=== PATIENT | female | born 1960 | race Two or more races ===

== ENCOUNTER 2023-02-16 07:17 | Outpatient (CLI) | payer OTHER | END 2023-02-16 07:19 | disposition home or self-care (01) | LOC: LAB 07:17 | PROVIDERS: ATTEND Surgery | DX: D64.9 Anemia, unspecified (principal); N39.0 Urinary tract infection, site not specified ==

== ENCOUNTER 2023-02-25 05:35 | Inpatient (IN) | payer OTHER ==
[~2023-02-25] VITALS: Ht 149.9 cm; Wt 53.5 kg
[~2023-02-25 05:35] MED LIST: ALDACTONE25 MG PO; ATIVAN PO; AVAPRO300 MG PO; CARVEDILOL25 M1 PO; CREST PO; NORVASC10 MG PO; ZOLOFT50 MG PO; [UNRECOGNIZED DRUG - OTHER] PO
== END 2023-02-26 22:08 | disposition home or self-care (01) | DRG 328 ==
LOC: CIR.AMB 05:35 → SURG 18:08
PROVIDERS: ADMIT Surgery; ATTEND Surgery
PROC: 8E0W0CZ Robotic Assisted Procedure of Trunk Region, Open Approach (ICD-10-PCS; 2023-02-25)
PROC: 0D840ZZ Division of Esophagogastric Junction, Open Approach (ICD-10-PCS; principal; 2023-02-25 09:30)
DX: K22.0 Achalasia of cardia (principal); Z20.822 Contact with and (suspected) exposure to COVID-19
CPT/HCPCS: 43330; S2900

== ENCOUNTER 2024-03-23 09:57 | Emergency (ER) | payer OTHER ==
[~2024-03-23] VITALS: Ht 149.9 cm; Wt 55.8 kg
[2024-03-23] MEDS ORDERED: FAMOTIDINE/PF 20 MG in 0.9 % SODIUM CHLORIDE 8 ML IV PUSH STA (10:47)
[2024-03-23] MEDS ORDERED: 0.9 % SODIUM CHLORIDE 1,000 ML IV SCH (11:00)
[2024-03-23] MEDS ORDERED: ONDANSETRON HCL 2 MG/ML VIAL IV ONE (11:00)
[2024-03-23 11:23] LABS: HEMATOCRIT 40.3 % (36.0-45.00); HEMOGLOBIN 13.8 g/dL (12.0-15.00); MEAN CELL VOLUME 85.8 fL (80.00-100.00); MEAN CORPUSCULAR HEMOGLOBIN 29.3 pg (27.00-32.0); MEAN CORPUSCULAR HGB CONC 34.2 g/dl (32.0-36.0); PLATELET COUNT 223 K/uL (150-450); RED CELL DISTRIBUTION WIDTH 14.8 % (11.5-14.5)
[2024-03-23 12:00] LABS: ALBUMIN 3.7 gm/dL (3.4-5.0); BILIRUBIN TOTAL 1.97 mg/dL (0.3-1.2); CALCIUM 9.2 mg/dL (8.5-10.1); CREATININE SERUM 0.7 mg/dL (0.55-1.02); GFR 84.79; GLOBULINA 4.3 G/DL (2.4-3.5); POTASSIUM 3.84 mEq/L (3.5-5.1)
[2024-03-23] MEDS ORDERED: ONDANSETRON ODT8 MG PO (16:20)
== END 2024-03-23 16:37 | disposition home or self-care (01) ==
LOC: ER 09:58
PROVIDERS: General Practice
DX: K22.2 Esophageal obstruction (principal); N83.9 Noninflammatory disorder of ovary, fallopian tube and broad ligament, unspecified; Q78.6 Multiple congenital exostoses; I10 Essential (primary) hypertension; Z88.6 Allergy status to analgesic agent; Z88.8 Allergy status to other drugs, medicaments and biological substances

== ENCOUNTER 2024-04-11 14:06 | Emergency (ER) | payer OTHER ==
[~2024-04-11] VITALS: Ht 149.9 cm; Wt 53.1 kg
[~2024-04-11 14:06] MED LIST changes: +ONDANSETRON ODT8 MG PO
[2024-04-11 15:40] LABS: HEMATOCRIT 41.6 % (36.0-45.00); HEMOGLOBIN 13.8 g/dL (12.0-15.00); MEAN CELL VOLUME 85.7 fL (80.00-100.00); MEAN CORPUSCULAR HEMOGLOBIN 28.4 pg (27.00-32.0); MEAN CORPUSCULAR HGB CONC 33.2 g/dl (32.0-36.0); PLATELET COUNT 261 K/uL (150-450); RED BLOOD COUNT 4.85 M/uL (4.00-6.00); RED CELL DISTRIBUTION WIDTH 14.6 % (11.5-14.5)
[2024-04-11 16:11] LABS: INR 0.97; PARTIAL THROMBOPLASTIN TIME 29.1 SECONDS (22.0-34.0); PROTHROMBIN TIME 10.2 SECONDS (9.0-11.5)
[2024-04-11 16:15] LABS: PH,URINE 5.5 (5.0-8.0); URINE APPEARANCE Clear; URINE BILIRRUBIN Negative (NEGATIVE); URINE BLOOD Negative; URINE COLOR Yellow; URINE GLUCOSE Negative (NEGATIVE); URINE LEUKOCYTE Negative; URINE NITRATE Negative; URINE PROTEIN Negative (NEGATIVE)
[2024-04-11 16:15] LABS: ALBUMIN 3.8 gm/dL (3.4-5.0); BILIRUBIN TOTAL 1.74 mg/dL (0.3-1.2); CALCIUM 9.3 mg/dL (8.5-10.1); CREATININE SERUM 0.76 mg/dL (0.55-1.02); GFR 77.11; POTASSIUM 3.78 mEq/L (3.5-5.1); TOTAL PROTEIN 7.8 gm/dL (6.4-8.2)
[2024-04-11 16:16] LABS: URINE BACTERIA 186.4 uL (0.0-1933); URINE EPITHELIAL CELLS 85.4 uL (0.0-38.8); URINE RBC 24.8 uL (0.0-20.8); URINE WBC 23.1 uL (0.0-23.2)
[2024-04-11] MEDS ORDERED: GLUCAGON 1 MG VIAL ONE (18:25)
[2024-04-11] MEDS ORDERED: GLUCAGON 1 MG VIAL SUBCUTANEO ONE (18:30)
== END 2024-04-11 19:08 | disposition home or self-care (01) ==
LOC: ER 14:07
PROVIDERS: General Practice
DX: R13.10 Dysphagia, unspecified (principal); K22.0 Achalasia of cardia; R10.9 Unspecified abdominal pain; Z20.822 Contact with and (suspected) exposure to COVID-19; Z88.0 Allergy status to penicillin; Z88.6 Allergy status to analgesic agent